=== PATIENT | female | born 1975 | race African-American/Black ===

== ENCOUNTER 2017-01-13 04:59 | Day surgery (SDC) | payer BC ==
[2017-01-11 15:16] VITALS: BMI 31.8
[2017-01-13] MEDS ORDERED: ROPIVACAINE HCL 0.5% 30ML VIAL ONE (07:58)
[2017-01-13] MEDS ORDERED: MIDAZOLAM HCL 2 MG/2 ML SINGLE DOSE VIAL ONE ×2 (07:59)
[2017-01-13] MEDS ORDERED: PROPOFOL 20 ML ONE ×2 (08:43→10:04)
--- NOTE | 2017-01-13 09:21 | HP ---
[facility] - Chief Complaint Chief Complaint: left shoulder pain - Past Medical History Allergies/Adverse Reactions: Allergies Allergy/AdvReac Type Severity Reaction Status Date / Time clindamycin Allergy Mild Itching Verified 04/27/16 23:26 ...LMP: 01/08/17 - Current Medications Current Medications: Home Medications Medication Instructions Recorded Ibuprofen [Motrin -] 600 mg PO TID #30 tablet 03/29/16 L.acidoph,Paracasei, B.lactis 1 each PO DAILY 01/11/17 [Probiotic] Multivitamin [Poly-Vitamin] 1 each PO DAILY 01/11/17 Metaxalone [Skelaxin] 800 mg PO PRN PRN 01/13/17 Oxycodone HCl/Acetaminophen 1 tab PO Q6H #40 tablet MDD 4 01/13/17 [Percocet 5-325 mg Tablet] Satellite Physical Exam - Physical Examination Vital Signs: Vital Signs Period Temp Pulse Resp BP Sys/Cervantes Pulse Ox Last 24 Hr 98.2 F 77 20 121/78 95 General Appearance: Well Nourished, Well Developed, Alert & Oriented x3 ENT: Clear Lung: Normal air movement Heart: Regular rate & rhythm Extremities: Other (left shoulder- + ttp, decr rom, + neer, + lara, nvi) Neurological: Intact, Alert, Oriented Satellite Impression/Plan - Impression/Plan Impression: left shoulder impingement Operative Procedure: left shoulder arthroscopy Date to be Performed: 01/13/17
[2017-01-13] MEDS ORDERED: ceFAZolin SODIUM 1 GM VIAL IVPB ONE (10:05)
--- NOTE | 2017-01-13 10:49 | OP ---
Operative Note - Note: Operative Date: 01/13/17 Pre-Operative Diagnosis: left shoulder impingement syndrome Operation: left shoulder arthroscopy, subacromial decompression, distal clavicle excision Post-Operative Diagnosis: Same as Pre-op Surgeon: Raphael Flynn Computer Systems Software Architect: Gwyn Bradley Anesthesiologist/[employer] SUPERVISOR: Oren Leahy Anesthesia: General, Local Specimens Removed: shavings Estimated Blood Loss (mls): 50 Drains, Volume Out (mls): 0 Blood Volume Replaced (mls): 0 Fluid Volume Replaced (mls): 500 Operative Report Dictated: Yes
[2017-01-13 12:50] VITALS: PULSE 80
[2017-01-13 13:45] VITALS: BP 184/84; TEMP 98.8
--- NOTE | 2017-01-14 14:14 | PATH ---
Surgical Pathology Report Patient Name: JASON REZA [facility]. Rec. #: [id number] /Age/Gender: 1975 (Age: 41) / F Account: [id number] Location: [facility] Taken: 01/13/2017 Received: 01/13/2017 Reported: 01/14/2017 Physicians: Raphael Flynn M.D. Specimen(s) Received LEFT SHOULDER SHAVINGS Clinical History Impingement left shoulder Final Diagnosis LEFT SHOULDER, ARTHROSCOPIC SHAVING: PORTIONS OF SYNOVIUM, CARTILAGE, SKELETAL MUSCLE AND BONE CONSISTENT WITH ARTHROSCOPIC SHAVINGS. Electronically Signed Jose Cardona M.D. Gross Description Received in formalin, labeled "left shoulder shavings," is a 5.0 x 3.5 x 0.3 cm. aggregate of guaman-yellow soft tissue fragments. A statement services representative portion is submitted in one cassette. /01/13/2017/01/13/2017
--- NOTE | 2017-01-15 18:59 | OP ---
DATE OF OPERATION: 01/13/2017 PREOPERATIVE DIAGNOSIS: Left shoulder subacromial impingement. POSTOPERATIVE DIAGNOSIS: Left shoulder subacromial impingement. PROCEDURE: Left shoulder arthroscopy, subacromial decompression, and distal clavicle excision. SURGEON: Byron Harvey MD FINISHER FINE DIAMOND DIES: ELMA Ye ANESTHESIOLOGIST: Oren Leahy CRNA ANESTHESIA: Left interscalene block with LMA anesthesia. DRAINS: None. COMPLICATIONS: None. BLOOD LOSS: Minimal. BLOOD GIVEN: None. FLUID REPLACEMENT: 500 mL INDICATION: This patient is a 41-year-old female with a preoperative diagnosis of left shoulder subacromial impingement. After understanding the potential risks, complications, alternatives, and benefits of surgery versus nonsurgical treatment, the patient elected to undergo this procedure. DESCRIPTION OF PROCEDURE: Patient was brought to the operating room. Peripheral IV placed. IV sedation given. Two grams of IV Ancef were given. A left interscalene block was performed. LMA anesthesia was induced. She was placed into the beach chair position with ample padding throughout. The left upper extremity was prepped and draped in sterile fashion. The bony landmarks were marked out with a marking pen. A posterior portal was established, and a diagnostic arthroscopy was performed. In the glenohumeral joint, mostly things looked quite good. There was no arthritis. There was only a very small, partial, undersurface supraspinatus tear which was relatively close to the glenoid and was perhaps the size of a dime. There was also some fraying of the labrum, but the anterior labrum looked fine. There was no SLAP lesion. The area was irrigated and washed out. Next, our attention was turned to the subacromial space. A lateral portal was established. Under direct visualization, using a spinal needle and number-11 scalpel blade and then a Green cannula introduced into the subacromial space. The patient had a lot of inflammatory bursitis. An extensive debridement was done using the ArthroCare wand, revealing a large subacromial bony spur and a moderate-size, distal clavicle subclavicular spur. Both these spurs were taken down with a 5.5-mm oval bur and freshened up in reverse and with a shaver. Overall, the decompression looked quite good. It was quite flat. There was a lot more space. The arm was directly visualized, and there was no impingement. The top surface of the rotator cuff was directly visualized, and there was no evidence of any rotator cuff tear. Therefore, the area was copiously irrigated and washed out. All instrumentation removed. The arthroscopy portals closed with 3-0 nylon sutures and covered with Aquacel dressing. The patient was placed into a sling, extubated, taken down out of the beach chair position, and brought to the ambulatory recovery room in stable condition. Total operative time was approximately 45 minutes. There were no complications during the case. The patient tolerated the procedure well. Minimal blood loss. BYRON HARVEY M.D. [id number]
== END 2017-01-13 13:00 | disposition home or self-care (01) ==
LOC: JASU-SURG 04:59
PROVIDERS: ATTEND Orthopaedic Surgery
PROC: 0RNK4ZZ Release Left Shoulder Joint, Percutaneous Endoscopic Approach (ICD-10-PCS; 2017-01-13)
PROC: 0PBB4ZZ Excision of Left Clavicle, Percutaneous Endoscopic Approach (ICD-10-PCS; principal; 2017-01-13 09:00)
DX: M75.42 Impingement syndrome of left shoulder (principal); M75.52 Bursitis of left shoulder; M75.82 Other shoulder lesions, left shoulder
CPT/HCPCS: 84703; 88304-TC; 94760

== ENCOUNTER 2021-02-25 04:23 | Day surgery (SDC) | payer BC ==
[2021-02-24 11:25] VITALS: BMI 31.8
[2021-02-25] MEDS ORDERED: oxyCODONE HCL 5 MG TABLET PO PRN ×2 (07:45)
[2021-02-25] MEDS ORDERED: ONDANSETRON 4 MG/2 ML VIAL IVPUSH PRN (07:45)
[2021-02-25] MEDS ORDERED: LACTATED RINGERS SOLUTION 1,000 ML IV SCH (07:45)
[2021-02-25] MEDS ORDERED: PROPOFOL 20 ML ONE (08:24)
[2021-02-25] MEDS ORDERED: KETOROLAC TROMETHAMINE 30 MG/1 ML VIAL ONE (08:24)
[2021-02-25] MEDS ORDERED: DEXAMETHASONE SOD PHOSPHATE 4 MG/1 ML VIAL ONE (08:24)
[2021-02-25] MEDS ORDERED: SODIUM CHLORIDE 0.9% P/F 10 ML VIAL IJ ONE (08:24)
[2021-02-25] MEDS ORDERED: ceFAZolin SODIUM 1 GM VIAL ONE (08:24)
[2021-02-25] MEDS ORDERED: LIDOCAINE HCL/PF 2% SDV 5ML VIAL ONE (08:24)
[2021-02-25] MEDS ORDERED: DEXAMETHASONE SOD PHOSPHATE 10 MG/1 ML VIAL ONE (08:41)
[2021-02-25] MEDS ORDERED: ROPIVACAINE HCL 0.5% 30ML VIAL ONE (08:41)
[2021-02-25] MEDS ORDERED: MIDAZOLAM HCL 2 MG/2 ML SINGLE DOSE VIAL ONE ×4 (08:42→09:03)
[2021-02-25 14:05] VITALS: BP 106/66; PULSE 73; TEMP 98
== END 2021-02-25 14:30 | disposition home or self-care (01) ==
LOC: JASU-SURG 04:23
PROVIDERS: ATTEND Orthopaedic Surgery
PROC: 0RNJ4ZZ Release Right Shoulder Joint, Percutaneous Endoscopic Approach (ICD-10-PCS; principal; 2021-02-25 09:00)
DX: M75.41 Impingement syndrome of right shoulder (principal); M75.111 Incomplete rotator cuff tear or rupture of right shoulder, not specified as traumatic
CPT/HCPCS: 94760; J1100

== ENCOUNTER 2021-05-09 16:39 | Emergency (ER) | payer BC ==
[2021-05-09 16:54] VITALS: BP 121/73; PULSE 81; TEMP 97.9; BMI 30.2
[2021-05-09] MEDS ORDERED: KETOROLAC TROMETHAMINE 30 MG/1 ML VIAL IM ONE (18:50)
[2021-05-09] MEDS ORDERED: KETOROLAC TROMETHAMINE 30 MG/1 ML VIAL ONE (19:12)
== END 2021-05-09 20:38 | disposition home or self-care (01) ==
LOC: JERFT 16:39
PROC: 3E0233Z Introduction of Anti-inflammatory into Muscle, Percutaneous Approach (ICD-10-PCS; principal; 2021-05-09)
DX: M25.511 Pain in right shoulder (principal); M25.551 Pain in right hip; W10.8XXA Fall (on) (from) other stairs and steps, initial encounter; Y92.9 Unspecified place or not applicable
CPT/HCPCS: 73030-TC-RT-FY; 73523-TC-FY; 99284-25

== ENCOUNTER 2023-06-03 09:59 | Emergency (ER) | payer OTHER ==
[2023-06-03 10:11] VITALS: BP 125/80; PULSE 89; RESP 18; TEMP 97.9; BMI 31.6
[2023-06-03] MEDS ORDERED: SODIUM CHLORIDE 0.9% 500 ML INFUS.BAG IV ONE (10:48)
[2023-06-03] MEDS ORDERED: FAMOTIDINE 20 MG/50 ML IVPB 20 MG/50 ML MG IVPB ONE ×2 (10:48→11:02)
[2023-06-03] MEDS ORDERED: MAG HYDROX/AL HYDROX/SIMETH 30 ML UNIT-DOSE CUP PO ONE (10:48)
[2023-06-03] MEDS ORDERED: MAG HYDROX/AL HYDROX/SIMETH 30 ML UNIT-DOSE CUP ONE (11:02)
[2023-06-03 11:51] LABS: POTASSIUM 4.1 mmol/L (3.5-5.1)
[2023-06-03 11:53] LABS: CALCIUM 9.4 mg/dL (8.5-10.1)
[2023-06-03 11:54] LABS: ALBUMIN 3.8 g/dl (3.4-5.0); BLOOD UREA NITROGEN 8.6 mg/dL (7-18)
[2023-06-03 11:58] LABS: BILIRUBIN,TOTAL 0.4 mg/dL (0.2-1); TOT PROT 7.8 g/dl (6.4-8.2)
[2023-06-03 12:07] LABS: BASO % 0.7 % (0-2.0); EOS % 1.7 % (0-4.5); HEMATOCRIT 40.1 % (32.4-45.2); HEMOGLOBIN 12.9 GM/dL (10.7-15.3); LYMPH % 26.3 % (8-40); MCHC 32.2 g/dl (32.0-36.0); MEAN CELL VOLUME 87.1 fl (80-96); MEAN PLT VOLUME 8.9 fl (7.5-11.1); MONO % 8.1 % (3.8-10.2); NEUT % 63.2 % (42.8-82.8); PLATELET COUNT 343 10^3/uL (134-434); RBC 4.61 M/mm3 (3.60-5.2); RDW 13.7 % (11.6-15.6); WHITE BLOOD COUNT 7.8 K/mm3 (4.0-10.0)
== END 2023-06-03 19:19 | disposition home or self-care (01) ==
LOC: JER 09:59
PROC: 3E033GC Introduction of Other Therapeutic Substance into Peripheral Vein, Percutaneous Approach (ICD-10-PCS; principal; 2023-06-03)
DX: R10.13 Epigastric pain (principal); R10.11 Right upper quadrant pain; K29.70 Gastritis, unspecified, without bleeding; K76.0 Fatty (change of) liver, not elsewhere classified
CPT/HCPCS: 36415; 74177-TC; 76705-TC; 80053; 83690; 84703; 85025; 99285-25; Q9967

== ENCOUNTER 2023-06-20 04:33 | Day surgery (SDC) | payer OTHER ==
[2023-06-17 12:02] VITALS: BMI 31.6
[2023-06-20 11:57] VITALS: TEMP 97.8
[2023-06-20 12:40] VITALS: BP 128/83; PULSE 76; RESP 16
== END 2023-06-20 12:53 | disposition home or self-care (01) ==
LOC: JASU-ENDO 04:33
PROVIDERS: ATTEND Internal Medicine Gastroenterology
PROC: 0DB78ZX Excision of Stomach, Pylorus, Via Natural or Artificial Opening Endoscopic, Diagnostic (ICD-10-PCS; 2023-06-20)
PROC: 0DB68ZX Excision of Stomach, Via Natural or Artificial Opening Endoscopic, Diagnostic (ICD-10-PCS; 2023-06-20)
PROC: 0DB98ZX Excision of Duodenum, Via Natural or Artificial Opening Endoscopic, Diagnostic (ICD-10-PCS; principal; 2023-06-20 10:45)
DX: K29.50 Unspecified chronic gastritis without bleeding (principal)
CPT/HCPCS: 81025; 88305-TC; 88342-TC